=== PATIENT | female | born 1985 | race Caucasian/White ===

== ENCOUNTER 2018-08-05 00:50 | Emergency (ER) | payer MEDICAID ==
[~2018-08-05] VITALS: Ht 152.4 cm; Wt 70.3 kg
--- NOTE | 2018-08-05 00:50 | NUR ---
PT KATHRYN BLS. TAKEN TO BED 8
[2018-08-05 01:00] VITALS: BP 117/67
--- NOTE | 2018-08-05 01:10 | NUR ---
43 Y/O F BIBA W/C/O RLQ ABD PAIN X 1 WEEK. +NAUSEA/VOMITING X TODAY. DENIES DIARRHEA. SKIN IS PINK/WARM/DRY; AAOX4, PERRL, WITH EVEN AND STEADY GAIT; LUNGS CLEAR BL, BREATHING UNLABORED; HR EVEN AND REGULAR, BL PERIPHERAL PULSES PRESENT; BS ACTIVE X4 PT DENIES ANY FEVER, CP, SOB, OR COUGH AT THIS TIME; PT STATES 10/10 PAIN AT THIS TIME; VSS; PATIENT POSITIONED FOR COMFORT; HOB ELEVATED; BEDRAILS UP X2; BED DOWN.
[2018-08-05] MEDS ORDERED: ONDANSETRON 4 MG/2 ML VIAL IVP ONE ×2 (02:40→05:30)
[2018-08-05] MEDS ORDERED: NACL 0.9% 1,000 ML IV SCH (02:40)
--- NOTE | 2018-08-05 03:06 | NUR ---
XRAY AT BEDSIDE
--- NOTE | 2018-08-05 04:15 | NUR ---
PT SLEEPING IN BED, EASILY AROUSABLE TO NAME. WILL CONTINUE TO MONITOR.
[2018-08-05 04:17] LABS: ALBUMIN 3.4 g/dL (3.4-5.0); CARBON DIOXIDE 28.5 mmol/L (21-32); CREATININE 0.8 mg/dL (0.6-1.3); POTASSIUM 3.5 mmol/L (3.5-5.1); TOTAL BILIRUBIN 0.4 mg/dL (0.0-1.0)
[2018-08-05 04:19] LABS: BASOPHILS % (AUTO) 0.3 % (0.0-2.0); EOSINOPHILS # (AUTO) 0.2 K/uL (0-0.4); HEMATOCRIT 38.1 % (36-48); HEMOGLOBIN 11.8 g/dL (12.0-16.0); LYMPHOCYTES % (AUTO) 25.3 % (20.5-51.1); MEAN CORPUSCULAR HEMOGLOBIN 24 pg (27-31); MEAN CORPUSCULAR HGB CONC 31 g/dL (33-37); MEAN CORPUSCULAR VOLUME 76.6 fL (80-94); MONOCYTES # (AUTO) 0.9 K/uL (0.8-1.0); MONOCYTES % (AUTO) 11.8 % (1.7-9.3); NEUTROPHILS # (AUTO) 4.9 K/uL (1.8-7.7); NEUTROPHILS % (AUTO) 60.6 % (42.2-75.2); PLATELET COUNT (AUTO) 264 K/uL (140-450); RED BLOOD CELL COUNT(AUTO) 4.98 MIL/uL (4.20-5.40); RED CELL DISTRIBUTION WIDTH 17.2 % (11.6-13.7)
[2018-08-05 04:48] LABS: APPEARANCE,URINE CLEAR (CLEAR); BILIRUBIN,URINE NEGATIVE (NEGATIVE); BLOOD, URINE NEGATIVE (NEGATIVE); COLOR,URINE YELLOW (YELLOW); LEUKOCYTE ESTERASE ,URINE NEGATIVE (NEGATIVE); NITRITE, URINE NEGATIVE (NEGATIVE); UGLUCOSE NEGATIVE (NEGATIVE)
--- NOTE | 2018-08-05 05:23 | NUR ---
Cami garzon in ED - 08/05/18 at 0523 by MEDARGELIA PT SITTING IN BED, AWAKE, VSS.
[2018-08-05] MEDS ORDERED: HYDROcodone/APAP 5/325 MG 1 TAB TAB PO ONE (05:30)
[2018-08-05 06:39] VITALS: BP 134/68
--- NOTE | 2018-08-05 06:40 | NUR ---
Patient discharged with v/s stable. Written and verbal after care instructions given and explained. Patient alert, oriented and verbalized understanding of instructions. Ambulatory with steady gait. All questions addressed prior to discharge. ID band removed. Patient advised to follow up with PMD. Rx of SHANTANU AGUILAR given. Patient educated on indication of medication including possible reaction and side effects. Opportunity to ask questions provided and answered. PT SIGNED FOR HOMELESS PACKET, BUS PASS PROVIDED.
== END 2018-08-05 06:40 | disposition home or self-care (01) ==
LOC: EDBD 00:50 → MED 00:50
DX: R10.31 Right lower quadrant pain (principal); R11.2 Nausea with vomiting, unspecified; J45.909 Unspecified asthma, uncomplicated; K21.9 Gastro-esophageal reflux disease without esophagitis; Z90.49 Acquired absence of other specified parts of digestive tract; Z90.89 Acquired absence of other organs; M19.90 Unspecified osteoarthritis, unspecified site; Z88.6 Allergy status to analgesic agent; Z88.2 Allergy status to sulfonamides; Z88.1 Allergy status to other antibiotic agents
CPT/HCPCS: 36415; 74021; 80053; 81003; 81025; 82150; 83690; 85025; 96361; 96374; 96376; 99284; J2405; J7030; Q0092